=== PATIENT | male | born 1995 | race African-American/Black ===

== ENCOUNTER → 2023-09-14 | Emergency (ER) | payer OTHER ==
[~2023-09-14] MED LIST: FENTANYL CITR 100 MCG/2 ML ONE; LIDOCAINE 1% MPF 30 ML VIAL ONE; MORPHINE 4 MG/ML SYR ONE
[2023-09-14 08:39] LABS: Absolute Eosinophils 0.1 K/uL (0-0.5); Absolute Monocytes 0.3 K/uL (0.1-1.3); Basophils % 0.1 % (0-1.3); Hematocrit 38.7 % (39.6-49.0); Hemoglobin 13.3 g/dL (13.6-17.9); Lymphocytes % 15.1 % (15.3-44.8); MCH 28.4 pg (27.0-35.0); MCHC 34.2 g/dL (32.0-36.0); MCV 82.9 fL (80-100); MPV 7.1 fL (7.6-11.3); Neutrophils % 78.8 % (41.7-73.7); Platelets 281 thou/uL (152-406); RBC Red Blood Cell Count 4.67 M/uL (4.33-5.43); Red Cell Distribution Width 13.8 % (12.1-15.2)
[2023-09-14 08:42] LABS: PT Prothrombin Time 12.7 SECONDS (9.5-12.5); PTT, Activated Partial Thromb 29.1 SECONDS (24.3-36.9); Protime INR 1.16
[2023-09-14 08:45] LABS: Anion Gap 7.7 mEq/L (5.0-15.0); Potassium 3.7 mEq/L (3.5-5.1)
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
--- NOTE | 2023-09-14 10:30 | RAD REPORT ---
EXAM DESCRIPTION: RAD - Chest Single View - 09/14/2023 10:11 am CLINICAL HISTORY: Chest tube insertion FINDINGS: A left chest tube has been inserted with its tip upper left hemithorax. The pneumothorax has decreased in size and is small
[2023-09-14 13:29] VITALS: BP 125/81; TEMP 98.5; O2SAT 99
== END ==
LOC: ER 08:14
PROC: 0W9B30Z Drainage of Left Pleural Cavity with Drainage Device, Percutaneous Approach (ICD-10-PCS; principal; 2023-09-14)
DX: S27.0XXA Traumatic pneumothorax, initial encounter (principal); J98.2 Interstitial emphysema; Z91.018 Allergy to other foods
CPT/HCPCS: 85025; 80048; 36415; 85610; 85730; 71260; 71045 ×2; 96375; 96374; 99285; 32551; Q9967; J2001; J3010